=== PATIENT | male | born 1980 | race Caucasian/White ===

== ENCOUNTER 2019-04-03 04:59 | Emergency (ER) | payer SELFPAY ==
[~2019-04-03] VITALS: Ht 165.1 cm; Wt 67.0 kg
[2019-04-03 05:36] LABS: CLARITY URINE CLEAR (CLEAR); COLOR URINE YELLOW (YELLOW); KETONES URINE NEGATIVE (NEGATIVE); LEUKOCYTE ESTERASE URINE 2+ (NEGATIVE); NITRITE URINE NEGATIVE (NEGATIVE); OCCULT BLOOD URINE NEGATIVE (NEGATIVE); PH URINE >=9.0 (4.5-8.0); PROTEIN URINE 1+ (NEGATIVE)
[2019-04-03] MEDS ORDERED: SODIUM CHLORIDE 0.9% 1,000 ML IV ONE (06:40)
[2019-04-03] MEDS ORDERED: MAGNESIUM/ALUMINUM HYDROXIDE/SIMETHICONE 30ML UDC PO STA (06:40)
[2019-04-03] MEDS ORDERED: VISCOUS LIDOCAINE 2% 15 ML UDC PO STA (06:40)
[2019-04-03 07:09] LABS: EOSINOPHILS % 1.1 % (0.0-5.0); HEMATOCRIT. 44.3 % (42.0-52.0); MEAN CORPUSCULAR HEMOGLOBIN 29.2 pg (28.0-32.0); MEAN CORPUSCULAR VOLUME 86.5 fL (80.0-94.0); MEAN PLATELET VOLUME 8.9 fl (7.4-10.4); MONOCYTES % 10.6 % (2.0-8.0); NEUTROPHILS % 57.3 % (40.0-76.0); PLATELET 204 x1000/uL (130-400); RED BLOOD CELL COUNT 5.12 mill/uL (4.7-6.1); RED CELL DISTRIBUTION WIDTH 15.8 % (11.6-14.6)
[2019-04-03 07:13] LABS: CHLORIDE 104 mEq/L (98-107)
[2019-04-03 07:16] LABS: PROTHROMBIN TIME 10.7 sec (9.6-11.0)
[2019-04-03 07:17] LABS: ETHANOL BLOOD < 10 mg/dL
[2019-04-03 09:46] LABS: *AMPHETAMINES SCREEN URINE NEGATIVE (NEGATIVE); *BARBITURATES SCREEN URINE NEGATIVE (NEGATIVE); *BENZODIAZEPINES SCREEN URINE PRESUMTIVE POSITIVE (NEGATIVE); *COCAINE SCREEN URINE NEGATIVE (NEGATIVE); CANNABINOID URINE SCREEN NEGATIVE (NEGATIVE); METHADONE URINE SCREEN NEGATIVE (NEGATIVE); OPIATES URINE SCREEN NEGATIVE (NEGATIVE); PHENCYCLIDINE URINE SCREEN NEGATIVE (NEGATIVE)
[2019-04-03 10:30] VITALS: BP 121/87
== END 2019-04-03 10:35 | disposition home or self-care (01) ==
LOC: ER 05:29
DX: N39.0 Urinary tract infection, site not specified (principal); R53.1 Weakness; R10.13 Epigastric pain; Z88.6 Allergy status to analgesic agent
CPT/HCPCS: 36415; 71045; 80053; 80305; 80320; 81003; 83690; 84484; 85025; 85610; 87086; 93005; 96360; 99284; J7030; Z7610; G0480